=== PATIENT | male | born 1975 | race Caucasian/White ===

== ENCOUNTER 2017-09-20 17:22 | Emergency (ER) | payer BC ==
[2017-09-20 17:51] VITALS: BP 142/76
--- NOTE | 2017-09-20 19:11 | UC ---
Amy Lyons Gabriel, scribed for Jean Batista MD on 09/20/17 at 1848 . Ear Complaint HPI - HPI Summary HPI Summary: This patient is a 42 year old M presenting to [facility] with a chief complaint of right ear pain since several weeks ago. Patient reports ear feels plugged and pops. Pt reports that it usually resolves in the morning a few hours after being awake but today it did not come unplugged. - History of Current Complaint Chief Complaint: UCEar Stated Complaint: R EAR POPPING Time Seen by Provider: 09/20/17 18:39 Hx Obtained From: Patient Onset/Duration: Lasting Weeks - months, Still Present Severity Initially: Mild Severity Currently: Mild Pain Intensity: 0 Pain Scale Used: 0-10 Numeric - Allergies/Home Medications Allergies/Adverse Reactions: Allergies Allergy/AdvReac Type Severity Reaction Status Date / Time Methylphenidate Allergy Fatigue Verified 12/29/15 12:37 [From Ritalin] Home Medications: Home Medications Cholecalciferol [Vitamin D] 1,000 unit PO 09/20/17 [History] [place]-3 Fatty Acids [Fish Oil] 1,000 mg PO 09/20/17 [History] PMH/Surg Hx/FS Hx/Imm Hx Previously Healthy: Yes - Surgical History Surgical History: None Surgery Procedure, Year, and Place: denies - Family History Known Family History: Positive: None - Social History Occupation: Employed Full-time Alcohol Use: None Substance Use Type: None Smoking Status (MU): Never Smoked Tobacco - Immunization History Most Recent Influenza Vaccination: 2004 Most Recent Tetanus Shot: 2010 Most Recent Pneumonia Vaccination: undecided Review of Systems Constitutional: Negative - fever ENT: Other - ear feels plugged and pops All Other Systems Reviewed And Are Negative: Yes Physical Exam Triage Information Reviewed: Yes Appearance: Well-Appearing, No Pain Distress Vital Signs: Initial Vital Signs Temp 98.1 F 09/20/17 17:48 Pulse 88 09/20/17 17:48 Resp 18 09/20/17 17:48 BP 142/76 09/20/17 17:48 Pulse Ox 98 09/20/17 17:48 Vital Signs Reviewed: Yes ENT: Positive: Pharynx normal, Other - right TM occluded by gooey wax, and left TM is clear and appears normal. Neck: Positive: Nontender Respiratory: Positive: Lungs clear, Normal breath sounds, No respiratory distress Cardiovascular: Positive: RRR, No Murmur Abdomen Description: Positive: Nontender Musculoskeletal: Positive: ROM Intact Neurological: Positive: Muscle Tone Normal, Other: - non focal. Skin Exam: Normal Ear Complaint Course/Dx - Course Course Of Treatment: 42 yr old male with cerumen in right ear. Debrox ear drops. FU with ENT. and also PMD referral for BP elevation. - Differential Dx/Diagnosis Provider Diagnoses: hypertension. Cerumen impaction right ear Discharge - Discharge Plan Condition: Good Disposition: HOME Patient Education Materials: Cerumen Impaction (ED), Hypertension (ED) Referrals: No Primary Care Phys,NOPCP [Primary Care Provider] - Sung Zarco MD [Medical Doctor] - [facility] [Outside] Additional Instructions: platen builder up debrox ear drops in the drug store and use as directed. The documentation as recorded by the Amy friedman Gabriel accurately reflects the service I personally performed and the decisions made by , Jean Batista MD.
== END 2017-09-20 19:15 | disposition home or self-care (01) ==
LOC: UCEAST 17:22
DX: H61.21 Impacted cerumen, right ear (principal); I10 Essential (primary) hypertension
CPT/HCPCS: 99211; G0463

== ENCOUNTER 2017-09-24 17:12 | Emergency (ER) | payer BC ==
[2017-09-24 17:20] VITALS: BP 132/68
--- NOTE | 2017-09-24 18:36 | UC ---
Ear Complaint HPI - HPI Summary HPI Summary: 42 y/o male presents to the urgent care c/o Rt ear plugged for the past week. Pt was seen here at the clinic on 09/20/2017 for similar symptoms and Rx otic drops to soften wax. However he feels the same with decrease hearing. Pt denies dizziness, fever, SOB, chest pain, GARCIA, nasal congestion, N/V/D - History of Current Complaint Chief Complaint: UCEar Stated Complaint: EARS CLOGGED Time Seen by Provider: 09/24/17 18:34 Hx Obtained From: Patient Onset/Duration: Gradual Onset, Lasting Weeks Severity Initially: Mild Severity Currently: Moderate Pain Intensity: 0 Pain Scale Used: 0-10 Numeric Aggravating Factors: Nothing Alleviating Factors: Nothing Associated Signs/Symptoms: Positive: Hearing Loss - Allergies/Home Medications Allergies/Adverse Reactions: Allergies Allergy/AdvReac Type Severity Reaction Status Date / Time Melatonin Allergy Severe BLOOD Verified 09/24/17 17:20 THINNING Methylphenidate Allergy Fatigue Verified 09/24/17 17:19 [From Ritalin] Home Medications: Home Medications Ibuprofen TAB* [Advil TAB*] 400 mg PO ONCE PRN 09/24/17 [History Confirmed 09/24] PMH/Surg Hx/FS Hx/Imm Hx Previously Healthy: Yes - Pt denies PMHX - Surgical History Surgical History: None Surgery Procedure, Year, and Place: denies - Family History Known Family History: Positive: None - Pt denies FMHX - Social History Occupation: Employed Full-time Lives: With Family Alcohol Use: None Substance Use Type: None Smoking Status (MU): Never Smoked Tobacco - Immunization History Most Recent Influenza Vaccination: 2004 Most Recent Tetanus Shot: 2010 Most Recent Pneumonia Vaccination: undecided Review of Systems Constitutional: Negative Skin: Negative Eyes: Negative ENT: Ear Ache - RT ear with decrease hearing, plugged Respiratory: Negative Cardiovascular: Negative Gastrointestinal: Negative Genitourinary: Negative Motor: Negative Neurovascular: Negative Musculoskeletal: Negative Neurological: Negative Psychological: Negative Is Patient Immunocompromised?: No All Other Systems Reviewed And Are Negative: Yes Physical Exam Triage Information Reviewed: Yes Vital Signs: Initial Vital Signs Temp 97.2 F 09/24/17 17:16 Pulse 90 09/24/17 17:16 Resp 16 09/24/17 17:16 BP 132/68 09/24/17 17:16 Pulse Ox 97 09/24/17 17:16 - Additional Comments Vital signs: reviewed General: awake and alert, not toxic appearing. Skin: [place], warm and dry, no evidence of atopic dermatitis, psoriasis, seborrhea. HEENT: -Head: atraumatic, non tender; no scalp dermatitis. -Eyes: sclera and conjunctiva clear, PERRLA, EOMI -Ears: no pre- or postauricular lymphadenopathy or erythema; Rt exteranl ear canal impacted with cerumen unable to visualize TM.LF Exteranl ear canal clear, LF TM normal w/out bulging or retraction. Good light reflex. No fluid level, vesicles, or bullae. No perforation. -Nose/Face: no rhinorrhea, congestion; no frontal or maxillary sinus tender to palpation. -Mouth/Throat: Mucous membrane moist, posterior pharynx clear, no erythema or exudates. Neck: supple, FROM, nontender, no lymphadenopathy, no meningismus. Chest: CTA Abd: soft, Bowel sounds active, Nontender. Back: no spinal or CVAT Neuro: A&O x4, GCS 15, no focal neuro deficits, normal behavior for age. Ear Complaint Course/Dx - Course Course Of Treatment: 42 y/o male presents to the urgent care c/o Rt ear plugged for the past week. Pt was seen here at the clinic on 09/20/2017 for similar symptoms and Rx otic drops to soften wax. However he feels the same with decrease hearing. Pt denies dizziness, fever, SOB, chest pain, GARCIA, nasal congestion, N/V/D. Hx obtained. Pt with RT exteranl ear canal impacted with cerumen. RT ear iirgation ordered and performed by Nurse. Pt tolerated well procedure and Rt external ear canal completely cleared. No signs of infection. Advised to apply Debrox otic drops tonight to lubricate ear canal. Pt explained D/C instruction. Pt understood and agreed with D/C instructions. - Differential Dx/Diagnosis Differential Diagnosis/HQI/PQRI: Cerumen Impaction, Otitis Externa, Otitis Media , Perforated TM Provider Diagnoses: 1- RT external ear canal impacted with cerumen Discharge - Discharge Plan Condition: Stable Disposition: HOME Patient Education Materials: Cerumen Impaction (ED) Referrals: [facility] [[facility]] - If Needed Additional Instructions: 1-Please apply Debrox otic drops 5 drops in your RT external ear canal tonight to lubricate canal 2-If symptoms worsen please f/u with your PCP or return to the urgent care for further evaluation and treatment.
== END 2017-09-24 19:44 | disposition home or self-care (01) ==
LOC: UCEAST 17:12
DX: H61.21 Impacted cerumen, right ear (principal)
CPT/HCPCS: 99211; G0463

== ENCOUNTER 2017-11-23 16:49 | Emergency (ER) | payer BC ==
[2017-11-23 18:06] VITALS: BP 137/74
--- NOTE | 2017-11-23 19:12 | UC ---
Respiratory Complaint HPI - HPI Summary HPI Summary: Pt presents with productive cough and chest congestion for the last 3 days. He has been taking an OTC cold and flu medication with no relief. Denies fever, chills, SOB, chest pain, abdominal pain, n/v/d/c. - History of Current Complaint Chief Complaint: UCGeneralIllness Stated Complaint: COUGH,CONGESTED Time Seen by Provider: 11/23/17 19:12 Hx Obtained From: Patient Timing: Constant Severity Initially: Mild Severity Currently: Mild Pain Intensity: 2 Pain Scale Used: 0-10 Numeric Character: Cough: Productive - Allergies/Home Medications Allergies/Adverse Reactions: Allergies Allergy/AdvReac Type Severity Reaction Status Date / Time methylphenidate Allergy Pain Verified 11/23/17 18:06 [From Ritalin] PMH/Surg Hx/FS Hx/Imm Hx Previously Healthy: Yes - Surgical History Surgical History: None Surgery Procedure, Year, and Place: denies - Family History Known Family History: Positive: None - Social History Occupation: Employed Full-time Lives: With Family Alcohol Use: None Substance Use Type: None Smoking Status (MU): Never Smoked Tobacco - Immunization History Most Recent Influenza Vaccination: 2004 Most Recent Tetanus Shot: 2010 Most Recent Pneumonia Vaccination: undecided Review of Systems Constitutional: Negative Skin: Negative Eyes: Negative ENT: Negative Respiratory: Cough Cardiovascular: Negative Gastrointestinal: Negative Musculoskeletal: Negative Neurological: Negative Psychological: Negative All Other Systems Reviewed And Are Negative: Yes Physical Exam Triage Information Reviewed: Yes Appearance: Well-Appearing, No Pain Distress, Well-Nourished Vital Signs: Initial Vital Signs Temp 99.2 F 11/23/17 18:00 Pulse 88 11/23/17 18:00 Resp 20 11/23/17 18:00 BP 137/74 11/23/17 18:00 Pulse Ox 99 11/23/17 18:00 Vital Signs Reviewed: Yes Eyes: Positive: Conjunctiva Clear. Negative: Conjunctiva Inflamed, Discharge ENT: Positive: Hearing grossly normal, Pharynx normal, TMs normal, Uvula midline. Negative: Pharyngeal erythema, Nasal congestion, Nasal drainage, TM bulging, TM dull, TM red, Tonsillar swelling, Tonsillar exudate, Hoarse voice, Sinus tenderness Neck: Positive: Supple, Nontender, No Lymphadenopathy Respiratory: Positive: Lungs clear, No respiratory distress, No accessory muscle use, Wheezing - Mild throughout. Negative: Crackles Cardiovascular: Positive: RRR, No Murmur, Pulses Normal Neurological: Positive: Alert Psychological: Positive: Age Appropriate Behavior Skin: Negative: rashes UC Diagnostic Evaluation - Laboratory O2 Sat by Pulse Oximetry: 99 Respiratory Course/Dx - Course Course Of Treatment: Cough - Try mucinex OTC and will cover with anbx given copious sick contacts. - Differential Dx/Diagnosis Provider Diagnoses: Productive cough Discharge - Discharge Plan Condition: Stable Disposition: HOME Prescriptions: Azithromycin TAB* [Zithromax TAB (Z-OMARI) 250 mg #6 tabs] 2 tab PO .TODAY, THEN 1 DAILY #1 omari Patient Education Materials: Acute Cough (ED) Forms: *Work Release Referrals: No Primary Care Phys,NOPCP [Primary Care Provider] - Additional Instructions: If you develop a fever, shortness of breath, chest pain, new or worsening symptoms - please call your PCP or go to the ED.
== END 2017-11-23 19:24 | disposition home or self-care (01) ==
LOC: UCEAST 16:49
DX: R05 Cough (principal); Z88.8 Allergy status to other drugs, medicaments and biological substances
CPT/HCPCS: 99212; G0463

== ENCOUNTER 2020-01-04 17:47 | Emergency (ER) | payer BC, OTHER ==
--- NOTE | 2020-01-04 18:03 | UC ---
Respiratory Complaint HPI - HPI Summary HPI Summary: 44 yo male presents with cold symptoms. He tells me that for the past 5 days he has had a runny nose, sinus congestion, and an intermittent cough with white phlegm at times. 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 He has been taking dayquill/nyquill with good relief. sick with similar symptoms. Denies fever, chills, SOB, chest pain, abdominal pain, n/v. - History of Current Complaint Chief Complaint: UCRespiratory Stated Complaint: COUGH RUNNY NOSE Time Seen by Provider: 01/04/20 18:01 Hx Obtained From: Patient Onset/Duration: Gradual Onset Severity Initially: Moderate Severity Currently: Moderate Pain Intensity: 5 Pain Scale Used: 0-10 Numeric - Allergies/Home Medications Allergies/Adverse Reactions: Allergies Allergy/AdvReac Type Severity Reaction Status Date / Time methylphenidate Allergy Pain Verified 01/04/20 18:00 [From Ritalin] Home Medications: Home Medications Azithromycin TAB* [Zithromax TAB (Z-OMARI) 250 mg #6 tabs] 2 tab PO .TODAY, THEN 1 DAILY #1 omari 01/04/20 [Rx] D-Methorphan/PE/Acetaminophen [Vicks Dayquil Cold & Flu 10-5-325 mg/15Ml] 1 liq PO Q6HR 01/04/20 [History Confirmed 01/04/20] PMH/Surg Hx/FS Hx/Imm Hx - Additional Past Medical History Additional PMH: None - Surgical History Surgical History: None Surgery Procedure, Year, and Place: denies - Family History Known Family History: Positive: None - Social History Lives: With Family Alcohol Use: None Substance Use Type: None Smoking Status (MU): Never Smoked Tobacco - Immunization History Most Recent Influenza Vaccination: 2004 Most Recent Tetanus Shot: 2010 Most Recent Pneumonia Vaccination: undecided Review of Systems All Other Systems Reviewed And Are Negative: No Constitutional: Positive: Negative Skin: Positive: Negative Eyes: Positive: Negative ENT: Positive: Nasal Discharge, Sinus Congestion Respiratory: Positive: Cough Cardiovascular: Positive: Negative Gastrointestinal: Positive: Negative Neurological/Mental Status: Positive: Negative Psychological: Positive: Negative Physical Exam - Summary Physical Exam Summary: GENERAL: NAD. WDWN. No pain distress. SKIN: No rashes, sores, lesions, or open wounds. HEENT: Head: AT/NC Eyes: EOM intact. Conjunctiva clear without inflammation or discharge. Ears: Hearing grossly normal. TMs intact, no bulging, erythema, or edema. Nose: Nasal mucosa pink and moist. NTTP maxillary and frontal sinus. Throat: Posterior oropharynx without exudates, erythema, or tonsillar enlargement. Uvula midline. NECK: Supple. Nontender. No lymphadenopathy. CHEST: CTAB. No r/r/w. No accessory muscle use. Breathing comfortably and in no distress. CV: RRR. Pulses intact. Cap refill <2seconds NEURO: Alert. PSYCH: Age appropriate behavior. Triage Information Reviewed: Yes Vital Signs: Vital Signs: Temp Pulse Resp BP Pulse Ox 99.3 F 83 16 144/86 95 01/04/20 18:11 01/04/20 18:11 01/04/20 18:11 01/04/20 18:11 01/04/20 18:11 Vital Signs Reviewed: Yes Respiratory Course/Dx - Course Course Of Treatment: POC flu negative. Pt wishes to have COVID testing today. Exam performed utilizing CDC recommended PPE. You are being tested for COVID-19. You need to quarantine yourself in a bedroom and bathroom only you are using. You may not leave the house. [facility] will contact you and notify of results when they are available. Advised to be on home isolation until cleared by the health department (3-6 days likely) Go to ED for increased SOB or any difficulty breathing - new or worsening symptoms. - Differential Dx/Diagnosis Provider Diagnosis: Rhinosinusitis Discharge ED - Sign-Out/Discharge Documenting (check all that apply): Patient Departure All imaging exams completed and their final reports reviewed: No Studies - Discharge Plan Condition: Stable Disposition: HOME Prescriptions: Azithromycin TAB* [Zithromax TAB (Z-OMARI) 250 mg #6 tabs] 2 tab PO .TODAY, THEN 1 DAILY #1 omari Patient Education Materials: Cold Symptoms (ED) Forms: COVID-19 Tested & Isolation Referrals: No Primary Care Phys,NOPCP [Primary Care Provider] - Additional Instructions: May start antibiotic if your symptoms do not improve in 2-3 days You are being tested for COVID-19. You need to quarantine yourself in a bedroom and bathroom only you are using. You may not leave the house. [facility] will contact you and notify of results when they are available. Advised to be on home isolation until cleared by the health department (3-6 days likely) Go to ED for increased SOB or any difficulty breathing - new or worsening symptoms. - Billing Disposition and Condition Condition: STABLE Disposition: Home
[2020-01-04 18:12] VITALS: BP 144/86
[2020-01-04 18:34] LABS: Influenza A Molecular Negative (Negative); Influenza B Molecular Negative (Negative)
== END 2020-01-04 18:41 | disposition home or self-care (01) ==
LOC: UCEAST 17:47
DX: J32.9 Chronic sinusitis, unspecified (principal); R05 Cough; Z20.828 Contact with and (suspected) exposure to other viral communicable diseases; Z88.8 Allergy status to other drugs, medicaments and biological substances
CPT/HCPCS: 87635; 99212; G0463